=== PATIENT | female | born 1960 | race Caucasian/White ===

== ENCOUNTER 2021-06-30 04:57 | Day surgery (SDC) | payer OTHER, BC ==
[2021-06-30 08:36] VITALS: TEMP 97.8
[2021-06-30 09:20] VITALS: BP 149/84; PULSE 73
== END 2021-06-30 09:24 | disposition home or self-care (01) ==
LOC: JASU-ENDO 04:57
PROVIDERS: ATTEND Internal Medicine Gastroenterology
PROC: 0DBB8ZX Excision of Ileum, Via Natural or Artificial Opening Endoscopic, Diagnostic (ICD-10-PCS; 2021-06-30)
PROC: 0DBH8ZX Excision of Cecum, Via Natural or Artificial Opening Endoscopic, Diagnostic (ICD-10-PCS; principal; 2021-06-30 08:00)
DX: Z12.11 Encounter for screening for malignant neoplasm of colon (principal); K92.1 Melena; Z83.71 Family history of colonic polyps; D12.0 Benign neoplasm of cecum; K64.8 Other hemorrhoids; K57.30 Diverticulosis of large intestine without perforation or abscess without bleeding
CPT/HCPCS: 88305-TC

== ENCOUNTER 2024-10-10 11:42 | Emergency (ER) | payer OTHER ==
[2024-10-10 12:03] VITALS: BP 155/94; PULSE 84; RESP 16; TEMP 98.1; BMI 26.4
[2024-10-10] MEDS ORDERED: ACETAMINOPHEN 325 MG TABLET (FP) ONE (12:15)
[2024-10-10] MEDS ORDERED: DIPHTH,PERTUSS(ACELL),TET 0.5 ML DISP.SYRIN IM ONE (12:16)
[2024-10-10] MEDS: ACETAMINOPHEN 325 MG TABLET (FP) PO ONE (12:20)
[2024-10-10] MEDS: DIPHTH,PERTUSS(ACELL),TET 0.5 ML DISP.SYRIN IM ONE (12:20)
== END 2024-10-10 15:15 | disposition home or self-care (01) ==
LOC: FER 11:42
PROC: 3E0234Z Introduction of Serum, Toxoid and Vaccine into Muscle, Percutaneous Approach (ICD-10-PCS; principal; 2024-10-10)
DX: S92.901A Unspecified fracture of right foot, initial encounter for closed fracture (principal); Z23 Encounter for immunization; W18.40XA Slipping, tripping and stumbling without falling, unspecified, initial encounter
CPT/HCPCS: 73610-TC-RT-FY; 73630-TC-RT-FY; 90471; 90715; 99284-25